=== PATIENT | female | born 1990 | race Caucasian/White ===

== ENCOUNTER 2022-12-04 09:38 | Outpatient (CLI) | payer BC | END 2022-12-04 09:39 | disposition home or self-care (01) | LOC: TBSIIMAG 09:38 | PROVIDERS: ATTEND Orthopaedic Surgery | DX: S86.012A Strain of left Achilles tendon, initial encounter (principal) ==

== ENCOUNTER 2022-12-11 09:05 | Day surgery (SDC) | payer BC ==
[2022-12-10 11:00] VITALS: BMI 29.2
[2022-12-11 10:19] LABS: BHCG - Serum Negative (NEGATIVE); Pregs Control Background? CLEAR/WHITE (CLR/WHITE); Pregs Control Bar Appear? YES (CONTROL BAR)
[2022-12-11 10:24] LABS: #Basophils 0.1 thou/uL (0.0-0.2); #Eosinphils 0.2 thou/uL (0.0-0.7); #Lymphocytes 1.6 thou/uL (1.20-3.40); #Monocytes 0.4 thou/uL (0.11-0.59); #Neutrophils 3.7 thou/uL (1.40-6.50); %Eosinophils 3.1 % (0.0-10.0); %Lymphocytes 27.2 % (21.0-51.0); %Monocytes 6.8 % (0.0-10.0); Hemoglobin 14.2 g/dL (12.0-16.0); Mean Corpuscular HGB CONC 32.9 g/dL (32.0-36.0); Mean Corpuscular Hemoglobin 31.8 pg (27.0-31.0); Mean Corpuscular Volume 96.6 fl (78.0-98.0); Mean Platelet Volume 7.2 fL (7.4-10.4); Platelet Count 354 10x3/uL (130-400); RBC Distribution Width 11.5 % (11.5-14.5); Red Blood Cell (RBC) Count 4.48 mill/uL (4.20-5.40)
[2022-12-11] MEDS ORDERED: Ropivacaine 0.5% HCl/PF (150 MG/30 ML VIAL) ONE (11:09)
[2022-12-11] MEDS ORDERED: Midazolam HCl 2 mg/2 ml Vial ONE (11:09)
[2022-12-11] MEDS ORDERED: Fentanyl 100 MCG/2 ML VIAL ONE (11:09)
[2022-12-11] MEDS ORDERED: Acetaminophen 500 MG TAB ONE (11:10)
[2022-12-11] MEDS ORDERED: CEFAZOLIN 2 GM VIAL ONE (11:42)
[2022-12-11] MEDS ORDERED: Sodium Chloride 0.9% 100 ML ONE (11:43)
[2022-12-11] MEDS ORDERED: fentaNYL PF 100 MCG/2 ML SYRINGE ONE (11:44)
[2022-12-11] MEDS ORDERED: Glycopyrrolate 0.2 MG/ML 5 ML SYRINGE ONE (11:52)
[2022-12-11] MEDS ORDERED: NEOSTIGMINE 3 MG/3 ML SYR 3 MG/3 ML SYRINGE ONE (11:52)
[2022-12-11] MEDS ORDERED: Ketorolac Tromethamine 30 MG/ML VIAL ONE (11:52)
[2022-12-11] MEDS ORDERED: Rocuronium Bromide 10 MG/ML (10ML VIAL) ONE (11:52)
[2022-12-11] MEDS ORDERED: Dexamethasone 20 MG/5 ML VIAL ONE (11:52)
[2022-12-11] MEDS ORDERED: Ondansetron PF 4 MG/2 ML Vial ONE (11:52)
[2022-12-11] MEDS ORDERED: PROPOFOL 200 MG/20 ML VIAL ONE (11:52)
== END 2022-12-11 15:45 | disposition home or self-care (01) ==
LOC: SDC 09:05
PROVIDERS: ATTEND Orthopaedic Surgery
PROC: 0LQT0ZZ Repair Left Ankle Tendon, Open Approach (ICD-10-PCS; principal; 2022-12-11)
DX: S86.012A Strain of left Achilles tendon, initial encounter (principal); M19.90 Unspecified osteoarthritis, unspecified site; Z79.899 Other long term (current) drug therapy; X58.XXXA Exposure to other specified factors, initial encounter; Y93.68 Activity, volleyball (beach) (court)
CPT/HCPCS: 84703; 85025; J1100; J1885; J2250; J2405; J2704; J2795; J3010; J3490